=== PATIENT | female | born 2000 | race Caucasian/White ===

== ENCOUNTER 2019-10-09 12:45 | Emergency (ER) | payer BC ==
--- NOTE | 2019-10-09 13:05 | PDOC ---
History of Present Illness - General Chief Complaint: Pain Stated Complaint: ABDOMINAL PAIN Time Seen by Provider: 10/09/19 13:05 History Source: Patient Exam Limitations: No Limitations - History of Present Illness Initial Comments: 19 year old female with PMH kidney stone (self-resolved) with no PSH presented to ED for RLQ/R flank pain since 0800 this AM. pt reported she initially felt suprapubic cramping, then urinated and afterwards developed sharp right flank/ RLQ pain. Pt admitted to nausea/vomiting this AM, increased urinary frequency/ urgency. Pt denied diarrhea, fever, hematuria. Pt reported her symptoms feel similar to prior kidney stone. ROS General: denied fever, chills, generalized weakness. HEENT: denied sore throat, rhinorrhea, ear pain. Cardiovascular: denied chest pain, palpitations, syncope, diaphoresis. Respiratory: denied shortness of breath, cough, sputum production, hemoptysis. Gastrointestinal: admitted to nausea, vomiting. denied abdominal pain, diarrhea , constipation, blood in stool. Genitourinary: admitted to flank pain, increased urinary frequency. denied dysuria, hematuria, urinary incontinence. Back: denied back pain. Musculoskeletal: denied joint pain, muscle pain, joint swelling. Neurological: denied headache, dizziness, numbness, tingling, weakness. Integumentary: denied rash, laceration, abrasion. Hematologic/Lymphatic: denied bruising or bleeding. PE Constitutional: Well-nourished, Well-developed, appearing stated age. HEENT: head is normocephalic, atraumatic. EOMI. PERRLA. Neck: supple. Full ROM. Cardiovascular: regular heart rhythm. no murmurs. no pericardial friction rub. Respiratory: clear to auscultation bilaterally. no crackles, rhonchi or wheezing. no stridor. Gastrointestinal: soft, nontender. positive rovsings. normal bowel sounds. no rebound, guarding, masses. Back: positive CVA tenderness on the right. negative CVA tenderness on the left. Extremities: peripheral pulses intact. no lower extremity edema. Neurological: CN 2-12 grossly intact. moves all four extremities. Psych: awake, alert, oriented x3. follows commands. answers questions appropriately. Past History - Past Medical History Allergies/Adverse Reactions: Allergies Allergy/AdvReac Type Severity Reaction Status Date / Time No Known Allergies Allergy Verified 10/09/19 13:48 Home Medications: Ambulatory Orders Ibuprofen [Motrin -] 400 mg PO QID PRN #28 tablet 10/09/19 Oxycodone HCl/Acetaminophen [Percocet 5-325 mg Tablet -] 1 combo PO Q6H PRN #10 tablet MDD 4 10/09/19 Tamsulosin HCl [Flomax] 0.4 mg PO DAILY #10 capsule 10/09/19 ED Treatment Course - LABORATORY CBC & Chemistry Diagram: 10/09/19 14:00 10/09/19 14:00 Medical Decision Making - Medical Decision Making 19 year old female with above PMH presented to ED for right flank pain / RLQ pain since 0800 today associated with increased urinary frequency. Vital Signs Temperature 98.4 F 10/09/19 13:05 Pulse Rate 101 H 10/09/19 13:05 Respiratory Rate Blood Pressure 130/72 10/09/19 13:05 O2 Sat by Pulse Oximetry (%) 99 10/09/19 13:05 Afebrile. Mild tachycardia. No tachypnea. No hypotension. No hypoxia on room air. Labs ordered: CBC, CMP, UA/UC, urine test Imaging ordered: none Medications ordered: tylenol IV, zofran, normal saline bolus 1000 cc once 10/09/19 15:12 Urine Test Results Urine Color Yellow 10/09/19 13:14 Urine Appearance Slightly 10/09/19 13:14 Urine pH 7.0 (4.5-8) 10/09/19 13:14 Urine Protein 2+ (NEGATIVE) H 10/09/19 13:14 Urine Glucose (UA) Negative (NEGATIVE) 10/09/19 13:14 Urine Ketones Negative (NEGATIVE) 10/09/19 13:14 Urine Blood 3+ (NEGATIVE) H 10/09/19 13:14 Urine Nitrite Negative (NEGATIVE) 10/09/19 13:14 Urine Bilirubin 1+ (NEGATIVE) H 10/09/19 13:14 Ur Leukocyte Esterase Trace (NEGATIVE) H 10/09/19 13:14 Urine RBC >100 /hpf (0-4) 10/09/19 13:14 Urine WBC 10-20 (NEGATIVE) 10/09/19 13:14 Urine Bacteria Many /hpf (NEGATIVE) 10/09/19 13:14 Positive hematuria. Positive UTI. Imaging ordered: US RUQ -Will evaluate for hydro CBC WBC 8.4 K/mm3 (4.0-10.8) 10/09/19 14:00 RBC 5.06 M/mm3 (3.60-5.2) 10/09/19 14:00 Hgb 14.4 GM/dl (10.7-15.3) 10/09/19 14:00 Hct 43.3 % (32.4-45.2) 10/09/19 14:00 MCV 85.6 fl (80-96) 10/09/19 14:00 MCH 28.5 pg (25.7-33.7) 10/09/19 14:00 MCHC 33.3 g/dl (32.0-36.0) 10/09/19 14:00 RDW 12.0 % (11.6-15.6) 10/09/19 14:00 Plt Count 203 K/MM3 (134-434) 10/09/19 14:00 MPV 9.7 fl (7.5-11.1) 10/09/19 14:00 Absolute Neuts (auto) 6.6 K/mm3 10/09/19 14:00 Neutrophils % 79.2 % (42.8-82.8) 10/09/19 14:00 Lymphocytes % 15.0 % (8-40) 10/09/19 14:00 Monocytes % 4.6 % (3.8-10.2) 10/09/19 14:00 Eosinophils % 0.4 % (0-4.5) 10/09/19 14:00 Basophils % 0.8 % (0-2.0) 10/09/19 14:00 CMP Sodium 137 mmol/L (136-145) 10/09/19 14:00 Potassium 4.0 mmol/L (3.5-5.1) 10/09/19 14:00 Chloride 106 mmol/L (98-107) 10/09/19 14:00 Carbon Dioxide 22 mmol/L (21-32) 10/09/19 14:00 Anion Gap 9 MMOL/L (8-16) 10/09/19 14:00 BUN 12.0 mg/dl (7-18) 10/09/19 14:00 Creatinine 0.8 mg/dl (0.55-1.3) 10/09/19 14:00 Est GFR (CKD-EPI)AfAm 122.14 10/09/19 14:00 Est GFR (CKD-EPI)NonAf 105.39 10/09/19 14:00 Random Glucose 97 mg/dl (74-106) 10/09/19 14:00 Calcium 9.4 mg/dl (8.5-10) 10/09/19 14:00 Magnesium 2.0 mg/dL (1.8-2.4) 10/09/19 14:00 Total Bilirubin 1.3 mg/dl (0.2-1) H 10/09/19 14:00 AST 17 U/L (15-37) 10/09/19 14:00 ALT 14 U/L (13-61) 10/09/19 14:00 Alkaline Phosphatase 47 U/L (45-117) 10/09/19 14:00 Total Protein 7.8 g/dl (6.4-8.2) 10/09/19 14:00 Albumin 4.4 g/dl (3.4-5.0) 10/09/19 14:00 Pt reported improvement of symptoms. Urine testing negative. Medications ordered: toradol 30 mg IV once 10/09/19 16:15 US report: Name: [facility] Phys: Osiel Lorenzo MD : 2000 Age: 19 Sex: F [facility] Acct: [id number] Loc: [address] Exam Date: 10/09/19 Status: [place] [id number] Unit Number: [id number] EXAM#: TYPE/EXAM: RESULT: [id number] US/ABDOMEN US Abdomen ultrasound Clinical information: right abdominal pain, eval for hydronephrosis Mild right hydronephrosis is noted. The right ureter is obscured due to overlapping bowel gas. There is a possible nonobstructing 0.4 cm calculus within the midpole of the right kidney. The right kidney otherwise appears unremarkable. The left kidney, liver and partially visualized pancreas demonstrate no sonographic pathology. No bladder calculus is noted. The gallbladder appears unremarkable. No pericholecystic fluid is seen. The common bile duct diameter is unremarkable measuring 0.5 cm. No free intraperitoneal fluid is noted. The spleen appears borderline in length measuring 12.4 cm. Impression: Mild right hydronephrosis is noted. CT evaluation may be considered. Possible 0.4 cm nonobstructing right renal calculus. Borderline splenic size. No sonographic evidence of cholelithiasis or acute cholecystitis. There is no definite biliary tract dilatation. Reported By : Carrillo Branch MD 10/09/19 1609 Pt likely has nonobstructing stone without UTI. Pt reported improvement of symptoms, would like to be discharged. Pt discharged. Urology F/U given. Discharge - Discharge Information Problems reviewed: Yes Clinical Impression/Diagnosis: Kidney stone Condition: Improved Disposition: HOME - Admission No - Additional Discharge Information Prescriptions: Ibuprofen [Motrin -] 400 mg PO QID PRN #28 tablet PRN Reason: Pain Oxycodone HCl/Acetaminophen [Percocet 5-325 mg Tablet -] 1 combo PO Q6H PRN #10 tablet MDD 4 PRN Reason: Pain Tamsulosin HCl [Flomax] 0.4 mg PO DAILY #10 capsule - Follow up/Referral Referrals: Natan Albarran MD [Staff Physician] - Cameron Cristobal MD [Staff Physician] - Marcos Marmolejo MD [Staff Physician] - - Patient Discharge Instructions Additional Instructions: Follow up with your primary care doctor within 3 days. Follow up with a urologist within 5 days. I have provided you with a referral for multiple doctors. Take medications as indicated on labels. Return to the Emergency Department for increasing pain, vomiting, fever, burning with urination, lightheadedness, chest pain, shortness of breath, or any other new, worsening or concerning symptoms. - Post Discharge Activity Work/Back to School Note: Back to Work
[2019-10-09 13:39] VITALS: BP 130/72; PULSE 101; TEMP 98.4; BMI 20.5
--- NOTE | 2019-10-09 13:48 | PDOC ---
Attending Attestation - Resident Resident Name: Droina Carranza - ED Attending Attestation I have performed the following: I have examined & evaluated the patient, The case was reviewed & discussed with the resident, I agree w/resident's findings & plan, Exceptions are as noted - HPI HPI: 10/09/19 13:47 19y hx of kidney stones presents with RLQ radiating to the right flank pain associated nvnb vomiting since this morning. pt notse neo pain seems to wax and wane (currently is fairly mild but earlier, she was writhing around per mom). , without assocniated fever/chills, dysuria, diarrhea, cp, sob, numbness/tingling/ weakness, recent trauma. LMP was 3 weeksa go physical exam: GENERAL: The patient is awake, alert, and fully oriented, Nontoxic - in no acute distress. HEAD: Normocephalic, atraumatic. EYES: extraocular movements intact, sclera anicteric, conjunctiva clear. ENT: Normal voice, Moist mucous membranes. NECK: Normal range of motion, supple LUNGS: Breath sounds equal, clear to auscultation bilaterally. No wheezes, no rhonchi, no rales. HEART: Regular rate and rhythm, normal S1 and S2 without murmur, rub or gallop. ABDOMEN: Soft, nontender, No guarding, no rebound. No CVA tenderness EXTREMITIES: Normal range of motion, no edema. NEUROLOGICAL: No facial assymetry, Normal speech, PSYCH: Normal mood, normal affect. SKIN: Warm, Dry, normal turgor, at this time pt appears in no distress with non tender abdomen will ck labs, UA, ,hcg likely kidney stone, but consider appendicits, as well aso ovarian pathology, but thikn these are less likely due to the invovlement of the flank will treat with toradol for pain will erassess - Physicial Exam PE: 10/10/19 18:14 see above - Medical Decision Making 10/09/19 16:03 The patient's lab work was reviewed there is no leukocytosis, electrolytes are unremarkable UA did show a lot of blood. Her renal ultrasound does show hydro-on the right kidney suspect Kidney stone, the pain is patient's pain is controlled we will have the patient follow-up with urology for further management.
[2019-10-09] MEDS ORDERED: SODIUM CHLORIDE 1,000 ML IV STA (14:01)
[2019-10-09] MEDS ORDERED: ACETAMINOPHEN 1000 MG/100 ML VIAL (NON FORMULARY) IVPB ONE (14:01)
[2019-10-09] MEDS ORDERED: ONDANSETRON 4 MG/2 ML VIAL IVPUSH ONE (14:01)
[2019-10-09] MEDS ORDERED: ONDANSETRON 4 MG/2 ML VIAL ONE (14:06)
[2019-10-09] MEDS ORDERED: ACETAMINOPHEN INJECTION 100 ML IVPB ONE (14:06)
[2019-10-09 14:20] LABS: BASO % 0.8 % (0-2.0); EOS % 0.4 % (0-4.5); HEMATOCRIT 43.3 % (32.4-45.2); HEMOGLOBIN 14.4 GM/dl (10.7-15.3); MCH 28.5 pg (25.7-33.7); MCHC 33.3 g/dl (32.0-36.0); MEAN CELL VOLUME 85.6 fl (80-96); MEAN PLT VOLUME 9.7 fl (7.5-11.1); MONO % 4.6 % (3.8-10.2); NEUT % 79.2 % (42.8-82.8); PLATELET COUNT 203 K/MM3 (134-434); RBC 5.06 M/mm3 (3.60-5.2); WHITE BLOOD COUNT 8.4 K/mm3 (4.0-10.8)
[2019-10-09 14:27] LABS: ALBUMIN 4.4 g/dl (3.4-5.0); BILIRUBIN,TOTAL 1.3 mg/dl (0.2-1); CALCIUM 9.4 mg/dl (8.5-10); CREATININE 0.8 mg/dl (0.55-1.3); TOT PROT 7.8 g/dl (6.4-8.2)
[2019-10-09 14:57] LABS: EPITHELIAL CELLS MODERATE /hpf
[2019-10-09] MEDS ORDERED: KETOROLAC TROMETHAMINE 30 MG/1 ML VIAL IVPUSH ONE (15:13)
[2019-10-09] MEDS ORDERED: KETOROLAC TROMETHAMINE 30 MG/1 ML VIAL ONE (15:31)
== END 2019-10-09 16:58 | disposition home or self-care (01) ==
LOC: FER 12:45
PROC: 3E033NZ Introduction of Analgesics, Hypnotics, Sedatives into Peripheral Vein, Percutaneous Approach (ICD-10-PCS; principal; 2019-10-09)
PROC: 3E0333Z Introduction of Anti-inflammatory into Peripheral Vein, Percutaneous Approach (ICD-10-PCS; 2019-10-09)
PROC: 3E033GC Introduction of Other Therapeutic Substance into Peripheral Vein, Percutaneous Approach (ICD-10-PCS; 2019-10-09)
DX: N20.0 Calculus of kidney (principal)
CPT/HCPCS: 36415; 76700-TC; 80053; 81003; 81015; 83735; 84703; 85025; 87086; 99283-25; J0131; J7030